=== PATIENT | female | born 1985 | race Caucasian/White ===

== ENCOUNTER 2017-10-17 04:11 | Inpatient (IN) | payer BC ==
[~2017-10-17] VITALS: Ht 160 cm; Wt 79.4 kg
[2017-10-17] MEDS ORDERED: IPRATROPIUM BROMIDE (0.02%) 0.5MG/2.5ML NEB HHN STA (04:34)
[2017-10-17] MEDS ORDERED: MAGNESIUM 2 G PREMIX 50 ML IV STA (04:34)
[2017-10-17] MEDS ORDERED: METHYLPREDNISOLONE SOD SUCC 125 MG/2 ML VIAL IV STA (04:34)
[2017-10-17] MEDS ORDERED: ONDANSETRON HCL 4MG/2ML VIAL IV STA (04:34)
[2017-10-17] MEDS ORDERED: ALBUTEROL (0.083%) 2.5MG/3ML NEB HHN STA (04:34)
[2017-10-17] MEDS ORDERED: AZITHROMYCIN 500 MG in DEXT 5% WATER 250 ML IV ONE (04:45)
[2017-10-17] MEDS ORDERED: SODIUM CHLORIDE 0.9% 1000ML BAG (SEPSIS BOLUS) IV ONE (04:45)
[2017-10-17] MEDS ORDERED: CEFTRIAXONE 1 G PREMIX 50 ML IV ONE (04:45)
[2017-10-17] MEDS ORDERED: ALBUTEROL (0.5%) 2.5MG/0.5ML NEB HHN ONE (04:59)
[2017-10-17 05:02] LABS: BASOPHILS % 0.4 % (0.0-2.0); EOSINOPHILS % 0.8 % (0.0-5.0); HEMATOCRIT. 45.2 % (36.0-48.0); HEMOGLOBIN. 15.4 g/dL (12.0-16.0); LYMPHOCYTES % 13.2 % (20.0-50.0); MEAN CORPUSCULAR HEMOGLOBIN 31.4 pg (28.0-32.0); MEAN PLATELET VOLUME 9.4 fl (7.4-10.4); MONOCYTES % 5.7 % (2.0-8.0); NEUTROPHILS % 79.9 % (40.0-76.0); PLATELET 245 x1000/uL (130-400); RED BLOOD CELL COUNT 4.91 mill/uL (4.2-5.4); RED CELL DISTRIBUTION WIDTH 12.9 % (11.6-14.6)
[2017-10-17 05:12] LABS: CARBON DIOXIDE 30 mEq/L (21-32); CHLORIDE 104 mEq/L (98-107)
[2017-10-17] MEDS ORDERED: SODIUM CHLORIDE 0.9% 1,000 ML IV SCH (05:44)
[2017-10-17] MEDS ORDERED: NITROGLYCERIN 0.4MG TABLET SL SL PRN (08:00)
[2017-10-17] MEDS ORDERED: ONDANSETRON HCL 4MG/2ML VIAL IV PRN (08:00)
[2017-10-17] MEDS ORDERED: CLONIDINE 0.1MG TABLET PO PRN (08:00)
[2017-10-17] MEDS ORDERED: ACETAMINOPHEN 325MG TABLET PO PRN (08:00)
[2017-10-17] MEDS ORDERED: DIPHENHYDRAMINE 50MG/ML VIAL IV PRN (08:00)
[2017-10-17] MEDS ORDERED: IPRATROPIUM/ALBUTEROL 0.5-3(2.5)MG/3ML NEB HHN SCH (08:00)
[2017-10-17] MEDS ORDERED: MAGNESIUM/ALUMINUM HYDROXIDE/SIMETHICONE 30ML UDC PO PRN (08:00)
[2017-10-17 09:00] LABS: *AMPHETAMINES SCREEN URINE NEGATIVE (NEGATIVE); *BARBITURATES SCREEN URINE NEGATIVE (NEGATIVE); *BENZODIAZEPINES SCREEN URINE NEGATIVE (NEGATIVE); *COCAINE SCREEN URINE NEGATIVE (NEGATIVE); CANNABINOID URINE SCREEN NEGATIVE (NEGATIVE); METHADONE URINE SCREEN NEGATIVE (NEGATIVE); OPIATES URINE SCREEN NEGATIVE (NEGATIVE); PHENCYCLIDINE URINE SCREEN NEGATIVE (NEGATIVE)
[2017-10-17] MEDS ORDERED: NA PHOS,M-B/NA PHOS,DI-BA ENEMA 118ML PR PRN (09:00)
[2017-10-17] MEDS ORDERED: DOCUSATE SODIUM 100MG CAPSULE PO PRN (09:00)
[2017-10-17] MEDS ORDERED: IPRATROPIUM/ALBUTEROL 0.5-3(2.5)MG/3ML NEB HHN PRN (10:00)
[2017-10-17 11:42] VITALS: BP 115/71
[2017-10-17 11:51] VITALS: BP 115/71
[2017-10-17] MEDS ORDERED: DEXT5TAB15 PO (11:59)
[2017-10-17] MEDS ORDERED: ALBU18HF2 IH (11:59)
[2017-10-17] MEDS: FAMOTIDINE 20MG/2ML VIAL IV SCH ×2 (12:47→21:21)
[2017-10-17] MEDS ORDERED: KETOROLAC 15MG/ML VIAL IV PRN (13:00)
[2017-10-17] MEDS: METHYLPREDNISOLONE SOD SUCC 125 MG/2 ML VIAL IV SCH ×2 (13:28→21:21)
[2017-10-17] MEDS: BUDESONIDE 0.5MG/2ML NEB HHN SCH ×2 (13:28→20:42)
[2017-10-17] MEDS: IPRATROPIUM BROMIDE (0.02%) 0.5MG/2.5ML NEB HHN SCH ×2 (13:28→20:43)
[2017-10-17] MEDS ORDERED: ALBUTEROL (0.083%) 2.5MG/3ML NEB ONE (13:31)
[2017-10-17 16:00] VITALS: BP 101/58
[2017-10-17 20:00] VITALS: BP 119/77
[2017-10-17] MEDS: GUAIFENESIN/DM 600MG/30MG ER TAB 12HR PO SCH (20:23)
[2017-10-17] MEDS: GUAIFENESIN 200MG/10ML SUGAR FREE UDC PO PRN (20:26)
[2017-10-17] MEDS ORDERED: ZOLPIDEM TARTRATE 5MG TABLET PO PRN (21:00)
[2017-10-18] VITALS: BP 109/65
[2017-10-18] MEDS: IPRATROPIUM BROMIDE (0.02%) 0.5MG/2.5ML NEB HHN SCH ×7 (00:08→19:59)
[2017-10-18 04:00] VITALS: BP 108/73
[2017-10-18] MEDS: GUAIFENESIN 200MG/10ML SUGAR FREE UDC PO PRN ×3 (04:12→22:35)
[2017-10-18] MEDS: METHYLPREDNISOLONE SOD SUCC 125 MG/2 ML VIAL IV SCH ×3 (06:05→21:36)
[2017-10-18 08:00] VITALS: BP 126/85
[2017-10-18] MEDS: FAMOTIDINE 20MG/2ML VIAL IV SCH ×2 (09:04→21:36)
[2017-10-18] MEDS: BUDESONIDE 0.5MG/2ML NEB HHN SCH ×2 (09:04→19:59)
[2017-10-18] MEDS: GUAIFENESIN/DM 600MG/30MG ER TAB 12HR PO SCH ×2 (09:04→20:46)
[2017-10-18 12:00] VITALS: BP 103/74
[2017-10-18 16:00] VITALS: BP 96/73
[2017-10-18 20:00] VITALS: BP 116/75
[2017-10-19] MEDS: IPRATROPIUM BROMIDE (0.02%) 0.5MG/2.5ML NEB HHN SCH ×3 (02:28→09:21)
[2017-10-19] MEDS: GUAIFENESIN 200MG/10ML SUGAR FREE UDC PO PRN ×2 (02:57→08:10)
[2017-10-19 04:00] VITALS: BP 119/64
[2017-10-19] MEDS: METHYLPREDNISOLONE SOD SUCC 125 MG/2 ML VIAL IV SCH (06:17)
[2017-10-19 08:00] VITALS: BP 140/70
[2017-10-19] MEDS: GUAIFENESIN/DM 600MG/30MG ER TAB 12HR PO SCH (08:10)
[2017-10-19] MEDS: FAMOTIDINE 20MG/2ML VIAL IV SCH (08:10)
[2017-10-19] MEDS: BUDESONIDE 0.5MG/2ML NEB HHN SCH (09:20)
[2017-10-19 11:34] LABS: HEMATOCRIT. 41.1 % (36.0-48.0); HEMOGLOBIN. 14.1 g/dL (12.0-16.0); MEAN CORPUSCULAR HEMOGLOBIN 31.6 pg (28.0-32.0); MEAN CORPUSCULAR VOLUME 92.2 fL (81.0-99.0); MEAN PLATELET VOLUME 8.6 fl (7.4-10.4); PLATELET 294 x1000/uL (130-400); RED BLOOD CELL COUNT 4.45 mill/uL (4.2-5.4); RED CELL DISTRIBUTION WIDTH 12.5 % (11.6-14.6)
[2017-10-19 11:49] LABS: CARBON DIOXIDE 28 mEq/L (21-32); CHLORIDE 107 mEq/L (98-107)
[2017-10-19 13:00] LABS: PLATELET ESTIMATE NORMAL
[2017-10-19] MEDS ORDERED: METHYLPREDNISOLONE SOD SUCC 40 MG/ML VIAL IV SCH (14:00)
[2017-10-19] MEDS ORDERED: MONTELUKAST SODIUM 10MG TABLET PO SCH (17:00)
[2017-10-19] MEDS ORDERED: FAMOTIDINE 20MG TABLET PO SCH (21:00)
== END 2017-10-19 11:55 | disposition home or self-care (01) | DRG 189 ==
LOC: ER 04:11 → 7WST 05:45 → EDBEDREQ 05:50 → EDBEDREQSVC 08:10 → ENRESERV 10:25 → 7WST 12:20
PROVIDERS: ADMIT Internal Medicine; ATTEND Internal Medicine
DX: J96.00 Acute respiratory failure, unspecified whether with hypoxia or hypercapnia (principal); J45.901 Unspecified asthma with (acute) exacerbation; E66.9 Obesity, unspecified; R73.9 Hyperglycemia, unspecified; T38.0X5A Adverse effect of glucocorticoids and synthetic analogues, initial encounter; Y92.89 Other specified places as the place of occurrence of the external cause; Z79.899 Other long term (current) drug therapy; Z68.31 Body mass index [BMI] 31.0-31.9, adult
CPT/HCPCS: 36415; 71045; 80048; 80053; 80305; 83036; 83605; 85025; 87040; 87804; 93005; 94640; 94644; 96365; 96366; 96368; 96375; 99291; J0456; J0696; J2405; J2930; J3475; J3490; J7030; J7060; J7611; J7626